=== PATIENT | female | born 2000 | race Two or more races ===

== ENCOUNTER 2020-05-03 09:50 | Outpatient (REF) | payer OTHER, SELFPAY | END 2020-05-03 09:51 | disposition home or self-care (01) | LOC: HO.LAB 09:50 | PROVIDERS: Visit Provider Internal Medicine | DX: Z20.828 Contact with and (suspected) exposure to other viral communicable diseases (principal) | CPT/HCPCS: U0003 ==

== ENCOUNTER 2020-06-05 11:26 | Emergency (ER) | payer OTHER, SELFPAY ==
[2020-06-05 12:20] VITALS: BP 116/68; PULSE 69; RESP 18; TEMP 36.4; O2SAT 100; BMI 61.4
--- NOTE | 2020-06-05 13:11 | ED.GENADULT ---
HPI - General Adult General Chief complaint: Headache Stated complaint: N/V/MORENO Time Seen by Provider: 06/05/20 12:58 Source: patient Mode of arrival: ambulatory Limitations: no limitations History of Present Illness HPI narrative: 20 yo female with no known past medical history here with multiple complaints. The patient tells me she is primarily concerned and COVID infection. She tells me she has complaints of urinary frequency, breast tenderness, nausea, vomiting, headache for the last few days. She last had her menses 1 month ago. She is sexually active and does not use contraception. She is seeking . Patient also tells me she is worried about COVID-19 infection. She was tested 1 month ago and was negative. She denies any fevers, chills, vomiting, diarrhea, cough, shortness of breath, chest pain. Onset (ago): day(s) Radiation: non-radiation Severity: mild Pain Consistency: intermittent Relieving factors: none Exacerbating factors: none Associated symptoms: headaches and nausea/vomiting Treatments prior to arrival: none Related Data Allergies Allergy/AdvReac Type Severity Reaction Status Date / Time No Known Allergies Allergy Verified 06/05/20 12:19 Review of Systems Review of Systems: Yes all other systems are reviewed and are negative Constitutional: Constitutional: Reports no additional constitutional complaints, Denies body ache(s), Denies chills, Denies fever(s), Reports headache(s) and Denies weakness Eyes: Eyes: Reports no additional eye complaints and Denies change in vision ENT: Reports system reviewed and no additional complaints, except as documented, Denies dizziness, Reports headache(s), Denies nasal congestion, Denies nasal discharge and Denies neck pain Cardiovascular: Cardiovascular: Reports no additional cardiovascular complaints, Denies chest pain, Denies leg edema and Denies dyspnea Respiratory: Respiratory: Reports no additional respiratory complaints, Denies cough and Denies dyspnea Gastrointestinal: Gastrointestinal: Reports no additional gastrointestinal complaints, Denies abdominal pain, Denies diarrhea, Reports nausea and Reports vomiting Genitourinary: Genitourinary: Reports no additional female genitourinary complaints and Denies urinary incontinence Comments: +breast tenderness urinary frequency Musculoskeletal: Musculoskeletal: Reports no additional musculoskeletal complaints, Denies back pain, Denies arthralgias, Denies joint swelling, Denies neck pain, Denies numbness and Denies tingling Integumentary/Breasts: Skin/Breast: Reports system reviewed and no additional complaints, except as docu and Denies rash Neurologic: Reports system reviewed and no additional complaints, except as documented, Denies Abnormal speech present, Denies dizziness, Reports headache(s), Denies numbness, Denies tingling and Denies weakness PMFSH Past Medical History Attestation statement: The following information was validated with the patient. Source: old records reviewed and nursing notes reviewed Medical History Asthma Social History Social History Alcohol intake: current Alcohol intake frequency: holidays/special occasions only Alcohol type: beer Smoking Status: Never smoker Use of substances other than those prescribed or required for medical reasons: No Advance Directives: No Advance Directives Information Provided: No Physical Exam Vital Signs: Vital Signs: Last Vital Signs Temp 97.5 F 06/05/20 12:20 Pulse 65 06/05/20 13:42 Resp 16 06/05/20 13:42 BP 121/77 06/05/20 13:42 Pulse Ox 100 06/05/20 13:42 Body Mass Index 61.4 Const: General: cooperative, healthy appearing, comfortable and no acute distress Orientation/consciousness: patient oriented x3 Limitations: no limitations HENMT: Head: Yes normal to inspection Ears: hearing grossly normal bilaterally General nose exam: Normal external nose present Face and sinus: Yes normal facial exam Mouth: Normal oral and palatal mucosa present Throat: Yes posterior oropharynx normal Eyes: General: appearance normal, both eyes and all related structures Pupils: Equal, round and reactive pupils present Neck: Neck: Yes normal visual inspection Chest: Chest palpation & inspection: normal inspection of the chest Resp: Effort & Inspection: normal respiratory effort Auscultation: clear to auscultation bilaterally Cardio: Rate: regular rate Rhythm: regular rhythm Peripheral pulses: Peripheral pulses 2+ throughout GI: Inspection: Yes normal to inspection Palpation (GI): Soft to palpation and nontender Auscultation: normal bowel sounds Back/Spine/Pelvis: Thoracic/Lumbar Spine: thoracic and lumbar spine normal to inspection Skin: General skin exam: no rashes or lesions noted Neuro: General: patient oriented x3, no focal motor deficits and normal sensation to monofilament Cranial nerves: Yes Equal, round and reactive pupils present Cognition (Neuro): normal cognition Speech: No Abnormal speech present Gait exam (Neuro): Normal gait present Motor exam (neuro): 5/5 motor strength present throughout Extrem: General: Yes normal to inspection Course Course Course Narrative: Here with complaints of breast tenderness, nausea, vomiting, headache, urinary frequency. She is concerned for in a sexually active and had unprotected sex once this month. LMP 11. She has no vaginal discharge or abdominal pain or diarrhea. Will send UA, urine , GC as she is sexually active. Patient also requesting COVID 19 testing and will send this. [id number]-GC testing pending. UA is negative for infection but does show some microscopic hematuria so I discussed with the patient she may be getting her menses soon. Her urine is negative. Her COVID testing is negative. She is upset that her test was not positive, patient and I did have a discussion in may take longer for her become she should also follow-up with her photographer news and discussed this with them. Reviewed worrisome signs and symptoms of when to return to the emergency department. Comfortable discharge home. Offered STD treatment the patient is not concerned about this and declined treatment and will wait for her test results to return. She is aware she may need to return for treatment Medical Decision Making MDM Narrative Medical decision making narrative: , UTI, gonorrhea, chlamydia, COVID-19 infection Medical Records Medical records reviewed: Yes I reviewed the patient's medical records. Lab Data Lab results reviewed: Yes I reviewed the patient's lab results. Labs: Lab Results 06/05/20 06/05/20 06/05/20 Range/Units 13:27 13:27 13:27 Urine Color YELLOW Urine Appearance HAZY Urine pH 7.0 (5.0-8.0) Ur Specific [place] 1.020 (1.005-1.025) Urine Protein NEG (NEG-TRACE) MG/DL Urine Glucose (UA) NEG (NEG) MG/DL Urine Ketones NEG (NEG) MG/DL Urine Blood 2+ H (NEG) Urine Nitrite NEG (NEG) Ur Leukocyte Esterase NEG (NEG) Urine RBC 10-14 H (0) /HPF Urine WBC 0 (0-4) /HPF Ur Squamous Epith Cells 3+ /LPF Urine Bacteria 1+ /LPF Urine Mucus 1+ /LPF Urine Test NEGATIVE (NEGATIVE) Coronavirus (PCR) Cancelled Influenza Type A (PCR) Cancelled Influenza Type B (PCR) Cancelled RSV RNA Qual (PCR) Cancelled 06/05/20 Range/Units 13:57 Urine Color Urine Appearance Urine pH (5.0-8.0) Ur Specific [place] (1.005-1.025) Urine Protein (NEG-TRACE) MG/DL Urine Glucose (UA) (NEG) MG/DL Urine Ketones (NEG) MG/DL Urine Blood (NEG) Urine Nitrite (NEG) Ur Leukocyte Esterase (NEG) Urine RBC (0) /HPF Urine WBC (0-4) /HPF Ur Squamous Epith Cells /LPF Urine Bacteria /LPF Urine Mucus /LPF Urine Test (NEGATIVE) Coronavirus (PCR) NEGATIVE Influenza Type A (PCR) NEGATIVE Influenza Type B (PCR) NEGATIVE RSV RNA Qual (PCR) NEGATIVE Discharge Plan Discharge Clinical Impression: Encounter for medical screening examination Patient Disposition: Home, Self-Care Instructions: Normal Exam (ED) Referrals: Physician,None [Primary Care Provider] - 2 days Interventions: ED Discharge Assessment Last Done: 06/05/20 15:42 Discharge Date/Time: 06/05/20 15:42
[2020-06-05 13:42] VITALS: BP 121/77; PULSE 65; RESP 16; O2SAT 100
[2020-06-05 13:46] LABS: Glucose Urine UA NEG (NEG); Leukocyte Esterase Urine NEG (NEG); Nitrite Urine NEG (NEG); Urine Blood 2+ (NEG); Urine Ketones NEG (NEG); Urine Protein NEG (NEG-TRACE)
[2020-06-05 13:49] LABS: Appearance Urine HAZY; Color Urine YELLOW
[2020-06-05 13:54] LABS: Bacteria Urine 1+ /LPF; Mucus Urine 1+ /LPF; Squamous Epithelial Cell Urine 3+ /LPF; WBC Urine 0 /HPF (0-4)
[2020-06-05 14:14] LABS: UPreg QC Valid YES; Urine Pregnancy NEGATIVE (NEGATIVE)
[2020-06-05 14:53] LABS: Influenza A PCR NEGATIVE (Negative); Influenza B PCR NEGATIVE (Negative); Resp Syncy Virus RNA Qual PCR NEGATIVE (Negative); SARS COV2 PCR INHOUSE NEGATIVE (Negative)
[2020-06-11 14:27] LABS: CT PCR NOT DETECTED (Not Detect.); NG PCR NOT DETECTED (Not Detect.)
== END 2020-06-05 15:42 | disposition home or self-care (01) ==
PROVIDERS: Nurse Practitioner Family; Emergency Provider Emergency Medicine Emergency Medical Services
DX: Z20.828 Contact with and (suspected) exposure to other viral communicable diseases (principal); R51.9 Headache, unspecified; Z32.02 Encounter for pregnancy test, result negative
CPT/HCPCS: 0241U; 81001; 81025; 87491; 87591; 99283; 99284

== ENCOUNTER 2020-08-17 15:00 | Emergency (ER) | payer OTHER, SELFPAY ==
[2020-08-17 15:54] VITALS: BP 107/71; PULSE 79; RESP 18; TEMP 36.6; O2SAT 100; BMI 42.4
== END 2020-08-17 18:25 | disposition left against medical advice (07) ==
PROVIDERS: Emergency Provider Emergency Medicine
DX: N91.2 Amenorrhea, unspecified (principal)
CPT/HCPCS: 99281; 99282